=== PATIENT | female | born 1970 | race Caucasian/White ===

== ENCOUNTER 2022-02-22 09:10 | Emergency (ER) | payer OTHER, BC, SELFPAY ==
[2022-02-22] VITALS (12 sets, daily range): BP systolic 98–146; BP diastolic 56–79; PULSE 80; RESP 20; TEMP 36.6; O2SAT 92–100
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
[2022-02-22] MEDS: MORPHINE SULFATE (*CRX) 4 MG/ML INJ IV PUSH (10:10)
[2022-02-22] MEDS: ONDANSETRON INJ 4 MG/2 ML VIAL IV PUSH (10:11)
[2022-02-22] MEDS: KETOROLAC 30 MG/ML VIAL (*BKC) IV PUSH (10:57)
== END 2022-02-22 11:10 | disposition home or self-care (01) ==
PROVIDERS: Emergency Provider Emergency Medicine; PCP Family Medicine
DX: S16.1XXA Strain of muscle, fascia and tendon at neck level, initial encounter (principal); S63.502A Unspecified sprain of left wrist, initial encounter; E11.9 Type 2 diabetes mellitus without complications; E78.00 Pure hypercholesterolemia, unspecified; I10 Essential (primary) hypertension; E03.9 Hypothyroidism, unspecified; F41.9 Anxiety disorder, unspecified; F32.A Depression, unspecified; Z79.84 Long term (current) use of oral hypoglycemic drugs; Z79.85 Long-term (current) use of injectable non-insulin antidiabetic drugs; Z87.891 Personal history of nicotine dependence; M47.812 Spondylosis without myelopathy or radiculopathy, cervical region; M47.814 Spondylosis without myelopathy or radiculopathy, thoracic region; M17.11 Unilateral primary osteoarthritis, right knee; M19.032 Primary osteoarthritis, left wrist; V43.52XA Car driver injured in collision with other type car in traffic accident, initial encounter
CPT/HCPCS: 70450; 71250; 72125; 73110; 73590; 96374; 96375; 99284; J1885; J2270; J2405

== ENCOUNTER 2022-03-04 03:12 | Emergency (ER) | payer BC, SELFPAY ==
[2022-03-04 03:15] VITALS: BP 154/54; PULSE 83; RESP 18; TEMP 36.6; O2SAT 100
--- NOTE | 2022-03-04 04:12 | PC.NURSE ---
Pt given IM toradol, PO ativan as ordered by EDP. 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 SEE PAPER CHART.
[2022-03-04 04:13] VITALS: BP 144/87; PULSE 78; RESP 15; O2SAT 100
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
--- NOTE | 2022-03-04 04:51 | PC.NURSE ---
Lidocaine patch placed to LEFT neck, & one to MID back. SEE PAPER CHARTING. Pt rates her pain a 4/10 at this time following Toradol inj.
--- NOTE | 2022-03-04 05:14 | PC.NURSE ---
On pain reassessment from Toradol inj, pt rates her pain a 3/10. SEE PAPER CHARTING
== END 2022-03-04 05:14 | disposition home or self-care (01) ==
PROVIDERS: Emergency Provider Preventive Medicine Aerospace Medicine; PCP Family Medicine
DX: M54.2 Cervicalgia (principal); M54.12 Radiculopathy, cervical region; I10 Essential (primary) hypertension; E78.5 Hyperlipidemia, unspecified; E11.9 Type 2 diabetes mellitus without complications; E03.9 Hypothyroidism, unspecified; Z87.891 Personal history of nicotine dependence
CPT/HCPCS: 99283